=== PATIENT | female | born 1960 | race Caucasian/White ===

== ENCOUNTER 2017-07-10 16:03 | Emergency (ER) | payer BC, MEDICARE ==
[~2017-07-10] VITALS: Ht 165.1 cm; Wt 108.9 kg
[2017-07-10] MEDS ORDERED: NITROGLYCERIN SUBLINGUAL 0.4 MG BOTTLE OF 25. SL PRN (16:30)
[2017-07-10 16:36] LABS: BASO % 0 % (0-3); EOS % 0 % (0-3); HEMATOCRIT 38.7 % (36.0-47.0); HEMOGLOBIN 13.1 g/dL (12.0-15.5); LYMPH # 1.2 x10^3/uL (1.0-4.8); LYMPH % 13 % (24-48); MEAN CORPUSCULAR HEMOGLOBIN 27 pg (25-35); MEAN CORPUSCULAR HGB CONC 34 g/dL (31-37); MEAN CORPUSCULAR VOLUME 80 fL (79-100); MONO % 3 % (0-9); NEUT % 84 % (31-73); PLATELET COUNT 380 x10^3/uL (140-400); RED BLOOD COUNT 4.83 x10^6/uL (3.50-5.40); RED CELL DISTRIBUTION WIDTH 14.9 % (11.5-14.5); WHITE BLOOD COUNT 9.2 x10^3/uL (4.0-11.0)
--- NOTE | 2017-07-10 16:43 | PHYS DOC ---
Past Medical History Past Medical History: Asthma, High Cholesterol, Hypertension Additional Past Medical Histor: IMMUNOGLOBULIN DEFICIENCY, PRE DIABETIC Past Surgical History: Hysterectomy, Tonsillectomy, Other Additional Past Surgical Histo: R ANKLE, PORT PLACED, SINUS SX Alcohol Use: None Drug Use: None Adult General Chief Complaint Chief Complaint: DIZZY/LIGHT HEADED HPI HPI Patient is a 56 year old female who presents with several hour history of moderate dizziness and shaking; no fever recent infusion of IgG yesterday; reports some wheezing earlier today took some breathing treatments. History of asthma and IgG deficiency denies CHF diabetes or coronary artery disease history denies renal insufficiency history. Review of Systems Review of Systems Constitutional: Denies fever or chills [] Eyes: Denies change in visual acuity, redness, or eye pain [] HENT: Denies nasal congestion or sore throat [] Respiratory: Denies cough or shortness of breath [] Cardiovascular: No additional information not addressed in HPI [] GI: Denies abdominal pain, nausea, vomiting, bloody stools or diarrhea [] : Denies dysuria or hematuria [] Musculoskeletal: Denies back pain or joint pain [] Integument: Denies rash or skin lesions [] Neurologic: Denies headache, focal weakness or sensory changes [] Endocrine: Denies polyuria or polydipsia [] All other systems were reviewed and found to be within normal limits, except as documented in this note. Current Medications Current Medications Current Medications Medications (Trade) Dose Ordered Sig/Rahul Start Time Stop Time Status Last Admin Dose Admin Nitroglycerin (Nitrostat) 0.4 mg PRN Q5MIN PRN 07/10/17 16:30 07/10/17 18:26 DC 07/10/17 16:46 0.4 MG Allergies Allergies Allergies Coded Allergies Type Severity Reaction Last Updated Verified No Known Drug Allergies 07/10/17 No Physical Exam Physical Exam Constitutional: Well developed, well nourished, no acute distress, non-toxic appearance. [] HENT: Normocephalic, atraumatic, bilateral external ears normal, oropharynx moist, no oral exudates, nose normal. [] Eyes: PERRLA, EOMI, conjunctiva normal, no discharge. [] Neck: Normal range of motion, no tenderness, supple, no stridor. [] Cardiovascular:Heart rate regular rhythm, no murmur [] Lungs & Thorax: Bilateral breath sounds clear to auscultation [] Abdomen: Bowel sounds normal, soft, no tenderness, no masses, no pulsatile masses. [] Skin: Warm, dry, no erythema, no rash. [] Back: No tenderness, no CVA tenderness. [] Extremities: No tenderness, no cyanosis, no clubbing, ROM intact, no edema. [] Neurologic: Alert and oriented X 3, normal motor function, normal sensory function, no focal deficits noted. [] Psychologic: Affect normal, judgement normal, mood normal. [] Current Patient Data Vital Signs Vital Signs Date Time Temp Pulse Resp B/P (MAP) Pulse Ox O2 Delivery O2 Flow Rate FiO2 07/10/17 18:25 90 18 98 07/10/17 16:46 193/89 07/10/17 16:06 98.6 Room Air 98.6 Lab Values Laboratory Tests Test 07/10/17 16:20 White Blood Count 9.2 x10^3/uL (4.0-11.0) Red Blood Count 4.83 x10^6/uL (3.50-5.40) Hemoglobin 13.1 g/dL (12.0-15.5) Hematocrit 38.7 % (36.0-47.0) Mean Corpuscular Volume 80 fL (79-100) Mean Corpuscular Hemoglobin 27 pg (25-35) Mean Corpuscular Hemoglobin Concent 34 g/dL (31-37) Red Cell Distribution Width 14.9 % (11.5-14.5) H Platelet Count 380 x10^3/uL (140-400) Neutrophils (%) (Auto) 84 % (31-73) H Lymphocytes (%) (Auto) 13 % (24-48) L Monocytes (%) (Auto) 3 % (0-9) Eosinophils (%) (Auto) 0 % (0-3) Basophils (%) (Auto) 0 % (0-3) Neutrophils # (Auto) 7.7 x10^3uL (1.8-7.7) Lymphocytes # (Auto) 1.2 x10^3/uL (1.0-4.8) Monocytes # (Auto) 0.3 x10^3/uL (0.0-1.1) Eosinophils # (Auto) 0.0 x10^3/uL (0.0-0.7) Basophils # (Auto) 0.0 x10^3/uL (0.0-0.2) Sodium Level 137 mmol/L (136-145) Potassium Level 3.8 mmol/L (3.5-5.1) Chloride Level 100 mmol/L (98-107) Carbon Dioxide Level 27 mmol/L (21-32) Anion Gap 10 (6-14) Blood Urea Nitrogen 14 mg/dL (7-20) Creatinine 1.0 mg/dL (0.6-1.0) Estimated GFR (Cockcroft-Gault) 57.8 BUN/Creatinine Ratio 14 (6-20) Glucose Level 118 mg/dL (70-99) H Calcium Level 10.1 mg/dL (8.5-10.1) Total Bilirubin 0.4 mg/dL (0.2-1.0) Aspartate Amino Transferase (AST) 25 U/L (15-37) Alanine Aminotransferase (ALT) 19 U/L (14-59) Alkaline Phosphatase 101 U/L (46-116) Troponin I Quantitative < 0.017 ng/mL (0.000-0.055) GC-Piz-T-Type Natriuretic Peptide 168 pg/mL (0-124) H Total Protein 10.4 g/dL (6.4-8.2) H Albumin 3.6 g/dL (3.4-5.0) Albumin/Globulin Ratio 0.5 (1.0-1.7) L Laboratory Tests 07/10/17 16:20 Laboratory Tests 07/10/17 16:20 EKG EKG EKG normal sinus rhythm rate of 95 no STEMI or acute ischemic changes QTC 403 interpretation by me[] Radiology/Procedures Radiology/Procedures Chest x-ray no acute cardiopulmonary process per radiology report[] Course & Med Decision Making Course & Med Decision Making Pertinent Labs and Imaging studies reviewed. (See chart for details) Labs were unremarkable EKG and chest x-ray unremarkable. Patient was given medicines to help lower her blood pressure we will reexamine to determine disposition. PM reexamination patient feels much improved symptoms gone away blood pressures 160/80. I will attempt to make phone contact with assembler crimper. Oximetry 6:20 PM did discuss the case with her assembler crimper he is in agreement with the plan of care. I do not suspect pulmonary embolism based on her hypertension lack of shortness of breath normal oxygen saturation no tachycardia. Advised follow-up with her PCP in the next 1-2 days.[] Dragon Disclaimer Dragon Disclaimer This electronic medical record was generated, in whole or in part, using a voice recognition dictation system. Departure Departure Impression: Primary Impression: Dizziness Additional Impression: Hypertensive urgency Disposition: 01 HOME, SELF-CARE Condition: IMPROVED Patient Instructions: Hypertension, [id number]-fc-[id number] Problem Qualifiers TANVI KRAMER MD Jul 10, 2017 16:43
--- NOTE | 2017-07-10 16:44 | RAD ---
Portable chest, 07/10/2017: History: Hypertension, dyspnea A right Port-A-Cath extends into the superior vena cava. The heart size and pulmonary vascularity are normal. No pulmonary infiltrates are seen. There is no evidence of pleural fluid. A surgical plate and screws is evident in the lower cervical spine. IMPRESSION: No acute cardiopulmonary abnormality is detected.
[2017-07-10 17:14] LABS: CALCIUM 10.1 mg/dL (8.5-10.1); GFR 57.8; POTASSIUM 3.8 mmol/L (3.5-5.1)
[2017-07-10 17:20] LABS: ALBUMIN 3.6 g/dL (3.4-5.0); ALBUMIN/GLOBULIN RATIO 0.5 (1.0-1.7); TOTAL BILIRUBIN 0.4 mg/dL (0.2-1.0); TOTAL PROTEIN 10.4 g/dL (6.4-8.2)
--- NOTE | 2017-07-10 17:33 | EKG ---
[facility] [address] [place] [address] Test Date: 2017-07-10 Test Time: 16:24:31 Pat Name: ESSENCE BLUM Department: Room: Gender: F Office Secretary: : 1960 Requested By: TANVI KRAMER Order Number: [id number] Reading MD: Charles Farrar MD Measurements Intervals Sylvester Rate: 95 P: 33 MT: 148 QRS: -13 QRSD: 88 T: -6 QT: 318 QTc: 403 Interpretive Statements SINUS RHYTHM Electronically Signed On 07-11-2017 16:10:23 SERVICE STATION MANAGER by Charles Farrar MD
[2017-07-10 18:25] VITALS: BP 150/81
== END 2017-07-10 18:26 | disposition home or self-care (01) ==
LOC: ER 16:03
DX: R42 Dizziness and giddiness (principal); I16.0 Hypertensive urgency; I10 Essential (primary) hypertension; E78.00 Pure hypercholesterolemia, unspecified; J45.909 Unspecified asthma, uncomplicated
CPT/HCPCS: 36415; 71010; 80053; 83880; 84484; 85025; 93005; 99285-25